=== PATIENT | male | born 1955 | race Hispanic/Latino ===

== ENCOUNTER 2020-11-27 07:59 | Day surgery (SDC) | payer OTHER ==
[2020-11-24 13:09] LABS: BASOPHILS % (AUTO) 0.5 % (0.0-5.0); EOSINOPHILS % (AUTO) 0.4 % (0.0-8.0); HEMATOCRIT 42.9 % (42-54); LYMPHOCYTES % (AUTO) 21.3 % (21.0-51.0); MEAN CORPUSCULAR HGB CONC 32.4 g/dL (32.0-36.0); MEAN CORPUSCULAR VOLUME 92.7 fL (79-99); MONOCYTES % (AUTO) 6.9 % (3.0-13.0); NEUTROPHILS % (AUTO) 70.5 % (40.0-77.0); PLATELET COUNT (AUTO) 277 K/uL (130-400); RED BLOOD CELL COUNT(AUTO) 4.63 MIL/uL (4.50-6.20); RED CELL DISTRIBUTION WIDTH 12.8 % (11.0-15.5); WHITE BLOOD COUNT (AUTO) 7.9 K/uL (4.8-10.8)
[2020-11-24 13:28] LABS: CREATININE 1.4 mg/dL (0.5-1.5); POTASSIUM 4.6 mmol/L (3.5-5.1)
[2020-11-26 09:41] VITALS: BP 140/78
[2020-11-27] VITALS (16 sets, daily range): BP systolic 102–161; BP diastolic 71–80
[~2020-11-27] VITALS: Ht 160 cm; Wt 86.7 kg
[~2020-11-27 07:59] MED LIST: FINA5TAB41 PO; TAMS-1 PO; levaquin PO
[2020-11-27] MEDS ORDERED: LACTATED RINGERS 1000ML 1,000 ML IV ONE (08:32)
[2020-11-27] MEDS: LEVOFLOXACIN 500 MG/D5W 100 ML 100 ML IV SCH ×2 (08:48→09:50)
[2020-11-27] MEDS: GENTAMICIN 80 MG/NS 100 ML PB 100 ML IV SCH ×2 (09:06→10:15)
[2020-11-27] MEDS ORDERED: GLYCOPYRROLATE 1 MG/5 ML SYRINGE ONE (09:36)
[2020-11-27] MEDS ORDERED: LIDOCAINE PF 2% 5ML ABBOJECT ONE (09:36)
[2020-11-27] MEDS ORDERED: ROCURONIUM 10MG/1ML SYR 10 MG/ML ML ONE (09:36)
[2020-11-27] MEDS ORDERED: DEXAMETHASONE SOD PHOSPHATE 10MG/ML 1ML VIAL ONE (09:36)
[2020-11-27] MEDS ORDERED: SUCCINYLCHOLINE 200MG/10ML SYR ONE (09:36)
[2020-11-27] MEDS ORDERED: FENTANYL CITRATE PF 50 MCG/1 ML 2ML VIAL ONE (09:36)
[2020-11-27] MEDS ORDERED: ONDANSETRON HCL 4 MG/2 ML VIAL ONE (09:36)
[2020-11-27] MEDS ORDERED: PROPOFOL 10 MG/ML 20ML VIAL IV ONE (09:36)
[2020-11-27] MEDS ORDERED: MIDAZOLAM HCL 1 MG/ML 2ML VIAL ONE (09:36)
[2020-11-27] MEDS ORDERED: NEOSTIGMINE 5MG/5ML SYR IV ONE (09:58)
[2020-11-27] MEDS ORDERED: OPIUM/BELLADONNA ALKALOIDS 1 EACH SUPP.RECT RC ONE (10:37)
[2020-11-27] MEDS ORDERED: PHENAZOPYRIDINE HCL 200 MG TABLET ONE (11:56)
== END 2020-11-27 13:00 | disposition home or self-care (01) ==
LOC: DAH 07:59
PROVIDERS: ATTEND Urology
DX: N40.1 Benign prostatic hyperplasia with lower urinary tract symptoms (principal); R33.9 Retention of urine, unspecified; R39.14 Feeling of incomplete bladder emptying; Z87.891 Personal history of nicotine dependence; Z20.828 Contact with and (suspected) exposure to other viral communicable diseases; Z79.899 Other long term (current) drug therapy
CPT/HCPCS: 36415; 52648; 80048; 85025; 93005; A4215; A4221; A4222; A4223; A4340; A4354; A4358; A4510; A4600; A4663; C9803; J0330; J1100; J1580; J1956; J2001; J2250; J2405; J2704; J2710; J3010; J3490; J7120 ×2; U0003